=== PATIENT | male | born 2000 | race Asian ===

== ENCOUNTER 2022-07-03 15:42 | Emergency (ER) | payer OTHER, MEDICAID ==
[~2022-07-03] VITALS: Ht 175.3 cm; Wt 104.3 kg
[2022-07-03 15:45] VITALS: BP_SYST 121
--- NOTE | 2022-07-03 15:45 | NUR ---
Patient triaged and placed in waiting room. VSS and patient appears in no acute distress at this time. Accompanied by SELF, awaiting available bed, and MD notified of need for MSE.
--- NOTE | 2022-07-03 16:15 | NUR ---
ER DR. THOMAS EXAMINING PT IN TRIAGE
--- NOTE | 2022-07-03 16:20 | NUR ---
PT BIB SELF FROM HOME WITH C/O LEFT ANKLE PAIN THAT STARTED TODAY. PT STATES HE WALK WALKING [place] WHEN HIS LEFT ANKLE INVERTED. PT IS IN MODERATE PAIN. HX - N/A. PT IS AAXO4, NAD, VSS, PT BREATHING EVEN AND UNLABORED ON RA, PT ON WINDOW CLEANER SHOWING NSR. SAFETY PRECAUTIONS AND COMFORT MEASURES IN PLACE. PENDING MD NAYLOR AND ORDERS.
--- NOTE | 2022-07-03 17:00 | NUR ---
Patient to ER bed 08 to gown for evaluation. Side rails up. Report given to INGRID HANSON.
[2022-07-03] MEDS ORDERED: IBUP-1971 PO (17:32)
--- NOTE | 2022-07-03 17:59 | NUR ---
PT MEDICALLY CLEARED FOR DISCHARGE. D/C INSTRUCTIONS GIVEN TO PT. PT TO FOLLOW-UP WITH PCP WITHIN 1-3 DAYS AND TO RETURN TO ED FOR WORSENING S/S. PT VERBALZIED UNDERSTANDING. PT AAX04, NAD, WRISTBAND REMOVED. PT AMBULATORY WITH STEADY GAIT. PT LEFT ED WITH ALL BELONGINGS.
[2022-07-03 18:00] VITALS: BP_SYST 121
== END 2022-07-03 18:00 | disposition home or self-care (01) ==
LOC: SED 15:42
DX: S93.402A Sprain of unspecified ligament of left ankle, initial encounter (principal); Z79.899 Other long term (current) drug therapy; W17.81XA Fall down embankment (hill), initial encounter; Y93.01 Activity, walking, marching and hiking; Y92.89 Other specified places as the place of occurrence of the external cause; Y99.8 Other external cause status
CPT/HCPCS: 73590-TC; 99284